=== PATIENT | male | born 1990 | race Caucasian/White ===

== ENCOUNTER 2016-07-19 19:30 | Emergency (ER) | payer MEDICAID ==
[~2016-07-19] VITALS: Ht 180.3 cm; Wt 90.7 kg
[~2016-07-19 19:30] MED LIST: ALLOPURINOL100 MG PO; CIPRO 500MG TA500 MG PO; COLCHICINE0.6 M4 PO; LEVOTHYROXINE0.15 M1 PO; LORTAB 5/500 501 TAB PO; NOMEDS *
[2016-07-19] MEDS ORDERED: AMOXICILLIN 50500 MG PO (20:04)
--- NOTE | 2016-07-19 20:05 | Urgent Treatment Center Report ---
History of Present Issue Date/Time Seen by Provider 07/19/161956 Visit Reason Pt arrived:Walked Presenting Problem:c/o cough, REYNA, sore throat, runny nose, ear pain x 3 days. Location if Accident: Onset of symptoms date/time:/ or onset unknown for:MEDICAL HX UNKNOWN Have you (or family members/close friends) recently traveled outside the [place]? N If Yes, where/when: Have you had exposure to infectious disease within the past month? TB? Other? Specify: Patient states that he has not been feeling well for 3 days and having bilateral ear pain, and flu like symptoms. States that he feels tired, body aches, headache, sorethroat and runny nose. States that he was afraid he had the flu so he came in to get checked ALLERGIES Coded Allergies: No Known Allergies (05/06/16) Home Medications Reported Medications Levothyroxine Sodium 0.15 MG PO DAILY #30 Allopurinol 100 MG PO TID #30 History Medical History General CAD? No Angina: No [place]: No Hypertension? No Hyperlipidemia? No CHF? No DVT? No PE? No COPD? No Asthma? No Anemia? No GERD? No Gastric ulcers? No GI Bleed? No Hernia? Yes Thyroid Problems? Yes Hypothyroidism? No CVA? No Seizures? No Diabetes? No Renal Insuffiency? No UTI? No Stones? No BPH? No GB Disease: No Nephritic Syndrome? No Asplenia? No Hepatitis? No Sickle Cell Disease? No Arthritis? No Migraines? No Cataracts? No Glaucoma? No MRSA? No HIV? No TB? No Anxiety? No Depression? No Cancer? No More? Yes Additional hx: gout Immunization HX DT/Tetanus 1-4 YRS+ Flu NEVER Pneumonia NEVER Surgical Hx Previous Surgery?Y EYE SURGERY X 3. INGUINAL HERNIA REPAIR ANKLE SURGERY DOUBLE HERNIA SURG Family History Family HX Diabetes No CAD No Hypertension No Cancer No TB No Social History Smoking Hx Smoker: Former Smoker Tobacco: No Alcohol Alcohol: No Review of Systems All Other Systems Reviewed and Negative ENT ear pain, nose discharge, nose congestion, throat pain. Respiratory cough Physical Exam Vital Signs Vital Signs Date Time Temp Pulse Resp B/P Pulse O2 O2 Flow FiO2 Ox Delivery Rate 07/19 1937 98.0 84 16 131/85 97 General Appearance normal appearance, appears ill, pale and flush Ear, Nose, Throat sinus pain/drainage, nasal congestion, throat pain, left ear bright red, TM Buldging Respiratory Status Yes: trachea midline, chest symmetrical, non tender chest. No: respiratory distress. Cardiovascular normal exam, no peripheral edema, no gallop, no JVD, no murmur Neurologic alert, normal exam Medical Decision Making LABS/Meds/Orders Pt receiving controlled substance in ED? No Results/Orders Laboratory Tests 07/19/161942: Influenza Type A Ag NOT DETECTED, Influenza Type B Ag NOT DETECTED Orders Procedure Date/time Status [facility] FLU A,B 07/19 1942 Complete Departure Departure Time of Disposition 1999 Disposition DC Home or Self Care(routine) Clinical Impression Primary Impression: Otitis media Qualifiers: Otitis media type: unspecified Laterality: left Chronicity: unspecified Qualified Code: H66.92 - Otitis media, unspecified, left ear Condition STABLE Referrals Wendy Ba MD (Family) Patient Instructions DI for Otitis Media (Middle Ear Infection)-Child Additional Instructions Over the counter Motrin/TYlenol as needed for fever Warm compress to ear to aid in pain relief Follow up family doctor Return to [facility] if needed Discharge Counseling Counseled pt/family regarding diagnosis, test results, medications/RX, home care Prescriptions Current Visit Scripts Amoxicillin Trihydrate (Amoxicillin 500MG) 1,000 MG PO Q8 #30 CAP at 2004
--- NOTE | 2016-07-19 20:05 | Urgent Treatment Center Report ---
History of Present Issue Date/Time Seen by Provider 07/19/161956 Visit Reason Pt arrived:Walked Presenting Problem:c/o cough, REYNA, sore throat, runny nose, ear pain x 3 days. Location if Accident: Onset of symptoms date/time:/ or onset unknown for:MEDICAL HX UNKNOWN Have you (or family members/close friends) recently traveled outside the [place]? N If Yes, where/when: Have you had exposure to infectious disease within the past month? TB? Other? Specify: Patient states that he has not been feeling well for 3 days and having bilateral ear pain, and flu like symptoms. States that he feels tired, body aches, headache, sorethroat and runny nose. States that he was afraid he had the flu so he came in to get checked ALLERGIES Coded Allergies: No Known Allergies (05/06/16) Home Medications Reported Medications Levothyroxine Sodium 0.15 MG PO DAILY #30 Allopurinol 100 MG PO TID #30 History Medical History General CAD? No Angina: No [place]: No Hypertension? No Hyperlipidemia? No CHF? No DVT? No PE? No COPD? No Asthma? No Anemia? No GERD? No Gastric ulcers? No GI Bleed? No Hernia? Yes Thyroid Problems? Yes Hypothyroidism? No CVA? No Seizures? No Diabetes? No Renal Insuffiency? No UTI? No Stones? No BPH? No GB Disease: No Nephritic Syndrome? No Asplenia? No Hepatitis? No Sickle Cell Disease? No Arthritis? No Migraines? No Cataracts? No Glaucoma? No MRSA? No HIV? No TB? No Anxiety? No Depression? No Cancer? No More? Yes Additional hx: gout Immunization HX DT/Tetanus 1-4 YRS+ Flu NEVER Pneumonia NEVER Surgical Hx Previous Surgery?Y EYE SURGERY X 3. INGUINAL HERNIA REPAIR ANKLE SURGERY DOUBLE HERNIA SURG Family History Family HX Diabetes No CAD No Hypertension No Cancer No TB No Social History Smoking Hx Smoker: Former Smoker Tobacco: No Alcohol Alcohol: No Review of Systems All Other Systems Reviewed and Negative ENT ear pain, nose discharge, nose congestion, throat pain. Respiratory cough Physical Exam Vital Signs Vital Signs Date Time Temp Pulse Resp B/P Pulse O2 O2 Flow FiO2 Ox Delivery Rate 07/19 1937 98.0 84 16 131/85 97 General Appearance normal appearance, appears ill, pale and flush Ear, Nose, Throat sinus pain/drainage, nasal congestion, throat pain, left ear bright red, TM Buldging Respiratory Status Yes: trachea midline, chest symmetrical, non tender chest. No: respiratory distress. Cardiovascular normal exam, no peripheral edema, no gallop, no JVD, no murmur Neurologic alert, normal exam Medical Decision Making LABS/Meds/Orders Pt receiving controlled substance in ED? No Results/Orders Laboratory Tests 07/19/161942: Influenza Type A Ag NOT DETECTED, Influenza Type B Ag NOT DETECTED Orders Procedure Date/time Status [facility] FLU A,B 07/19 1942 Complete Departure Departure Time of Disposition 1999 Disposition DC Home or Self Care(routine) Clinical Impression Primary Impression: Otitis media Qualifiers: Otitis media type: unspecified Laterality: left Chronicity: unspecified Qualified Code: H66.92 - Otitis media, unspecified, left ear Condition STABLE Referrals Wendy Ba MD (Family) Patient Instructions DI for Otitis Media (Middle Ear Infection)-Child Additional Instructions Over the counter Motrin/TYlenol as needed for fever Warm compress to ear to aid in pain relief Follow up family doctor Return to [facility] if needed Discharge Counseling Counseled pt/family regarding diagnosis, test results, medications/RX, home care Prescriptions Current Visit Scripts Amoxicillin Trihydrate (Amoxicillin 500MG) 1,000 MG PO Q8 #30 CAP at 2004
[2016-07-19 20:14] VITALS: BP 131/85
== END 2016-07-19 20:15 | disposition home or self-care (01) ==
LOC: UTC 19:30
DX: H66.92 Otitis media, unspecified, left ear (principal)